=== PATIENT | female | born 1970 | race Two or more races ===

== ENCOUNTER 2019-01-20 10:18 | Emergency (ER) | payer OTHER, MEDICAID ==
[2019-01-20] MEDS: ACETAMINOPHEN 500 MG TAB PO (11:48)
[2019-01-20] MEDS: LIDOCAINE 1% (MDV) 20 ML INJ SC (11:49)
[2019-01-20] MEDS: DIPHTH/TET/ACEL PERTUSS (ADULT) 0.5 ML VIAL IM* (11:49)
== END 2019-01-20 12:56 | disposition home or self-care (01) ==
LOC: FTE 10:18
DX: S61.011A Laceration without foreign body of right thumb without damage to nail, initial encounter (principal); X58.XXXA Exposure to other specified factors, initial encounter; Y92.89 Other specified places as the place of occurrence of the external cause; Z23 Encounter for immunization
CPT/HCPCS: 12001; 90471; 90715; 99283-25